=== PATIENT | female | born 1975 | race Caucasian/White ===

== ENCOUNTER 2017-12-03 06:21 | Day surgery (SDC) | payer MEDICARE ==
[2017-11-30 11:24] VITALS: BMI 50.1
--- NOTE | 2017-12-03 13:47 | OP ---
PROCEDURE PERFORMED: Colonoscopy. PREPROCEDURE DIAGNOSES: Family history of colorectal cancer in father and polyps in brothers. POSTPROCEDURE DIAGNOSES: Three of 5 polyps in the ascending colon ranging in size between 7 and 2 mm removed by hot snare polypectomy. Otherwise, normal colonoscopy. RECOMMENDATIONS: Repeat colonoscopy in 3 years. Await pathology. ANESTHESIA: TIVA. PROCEDURE IN DETAIL: After the patient was informed of the risks, benefits, possible complications o f endoscopy including perforation, bleeding, reaction to medication and aspiration, informed consent was obtained. A rectal exam was performed when she was sedated. It was normal. Then, the scope was advanced through the anal canal through the colon to the cecum, which was identified with appendicea l orifice and ileocecal valve. Terminal ileum was entered and normal. The prep was very good. The scope was slowly removed. There was a flat polyp at the very proximal ascending colon removed by sna re polypectomy in 2 pieces about 7 mm in size. There were two other small polyps about 2-3 mm in siz e removed by snare polypectomy. They were all submitted to pathology. Retroflexed views in the rect um were normal. The colon was otherwise normal. The scope was removed. The patient tolerated the p rocedure without any complications.
== END 2017-12-03 10:01 | disposition home or self-care (01) ==
LOC: SDC 06:21
PROVIDERS: ATTEND Internal Medicine Gastroenterology
PROC: 0DBK8ZX Excision of Ascending Colon, Via Natural or Artificial Opening Endoscopic, Diagnostic (ICD-10-PCS; principal; 2017-12-03)
DX: Z12.11 Encounter for screening for malignant neoplasm of colon (principal); D12.2 Benign neoplasm of ascending colon; Z80.0 Family history of malignant neoplasm of digestive organs
CPT/HCPCS: 88305